=== PATIENT | female | born 1940 | race Two or more races ===

== ENCOUNTER 2019-06-24 11:02 | Outpatient (CLI) | payer OTHER | END 2019-06-24 11:18 | disposition home or self-care (01) | LOC: NUCLEAR 11:02 | DX: I73.9 Peripheral vascular disease, unspecified (principal) ==

== ENCOUNTER 2019-10-12 07:36 | Outpatient (CLI) | payer OTHER | END 2019-10-12 07:39 | disposition home or self-care (01) | LOC: NUCLEAR 07:36 | DX: I10 Essential (primary) hypertension (principal) ==